=== PATIENT | female | born 1970 | race Caucasian/White ===

== ENCOUNTER 2018-11-08 11:01 | Observation (INO) ==
--- NOTE | 2018-11-08 11:20 | ERNOTE ---
Medical Problem HPI - Narrative Date of Service: 11/08/18 - General Chief Complaint: Nausea/Vomiting Time Seen by Provider: 11/08/18 11:15 Source: patient Exam Limitations: no limitations - Immun/Allergies/Home Medications Immunizations: IMMUNIZATION HX Immunizations Up to Date Yes History of Influenza Vaccine No Hx Pneumococcal Vaccination No Allergies/Adverse Reactions: Allergies No Known Allergies Allergy (Verified 11/08/18 11:07) Home Medications: HOME MEDICATIONS NK 11/05/18 [Last Taken Unknown] - Pain Score Pain Score #1 Pain Score: 10 - History of Present History Narrative: The patient is a 48 year old female who presents for persistent nausea, dizziness and fatigue which has been present for 5 days. There are associated symptoms of right parietal, temporal and frontal headache. The patient reports pain to right side of head, 10/10. There are alleviating factors of rest. There are aggravating factors of movement and oral intake. Previous treatments have included: none. The past medical history includes: asthma. The social history is negative. The patient has had unknown ill contacts, is exposed to lots of people at work. Patient was recently seen on Saturday after vomiting began, patient had resolution of vomiting upon discharge but states dizziness and headache has persisted. Patient states she has an IUD but this month began having some vaginal spotting within the past few days. Review of Systems - Review of Systems Constitutional: Present: chills, fatigue. Absent: fever EYE: Present: no symptoms reported ENT: Present: ear pain. Absent: nose congestion, nasal drainage, sore throat Respiratory: Absent: shortness of breath, cough Cardiology: Absent: chest pain Gastrointestinal/Abdominal: Present: nausea, vomiting, constipation, abdominal pain, eating less, drinking less Genitourinary: Present: no symptoms reported. Absent: dysuria Musculoskeletal: Present: no symptoms reported. Absent: back pain Skin: Present: no symptoms reported. Absent: rash Neurological: Present: headache Endocrine: Present: no symptoms reported Hematologic/Lymphatic: Present: no symptoms reported Psych: Present: no symptoms reported All Other Systems: All systems neg except as marked Medical History (Last Reviewed 11/08/18 @ 11:24 by ANA Saba) Asthma Surgical History: Surgical History (Last Reviewed 11/08/18 @ 11:24 by ANA Saba) No pertinent past surgical history Family History: Family History (Last Reviewed 11/08/18 @ 11:24 by ANA Saba) Other No pertinent family history Social History: Preferred Language Telugu Smoking Status Never smoker Alcohol Use none Drug Use none No Social History Section defined Physical Exam - Physical Exam General Appearance: Present: wd/wn, alert, moderate distress Head Exam: Present: normal inspection, no evidence of injury Eye Exam: Normal inspection: bilateral, PERRL: bilateral, EOMI: bilateral Ears, Nose, Throat: Present: normal ENT inspection, pharyngeal erythema Neck: Present: normal inspection, nontender Respiratory: Present: no respiratory distress, normal breath sounds, no ac cessory muscle use, lungs clear Cardiovascular/Chest: Present: regular rate, rhythm, no murmur Gastrointestinal/Abdominal: Present: normal bowel sounds, nondistended, soft, no organomegaly, tenderness - diffuse. 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 Discussed case with due to persistent symptoms. 11/08/18 13:27 Patient will be admitted due to persistent nausea, dizziness and headache. - Results and Orders Patient's Lab Results:: I have reviewed the patient's lab results. - Vital Signs Patient's Vital Signs:: I have reviewed the patient's vital signs. Vital Signs: Vital Signs 11/08/18 11:01 Temperature 36.7 C Pulse Rate 67 Respiratory Rate 16 Blood Pressure 135/93 H O2 Sat by Pulse Oximetry 99 - CT/Ultrasound CT/Ultrasound Narrative: X-RAY REPORT ~[id number] CT/CT Head W/O *~ Exam Date: 11/08/2018 12:06 Ordering Physician: Laila PEREZ HISTORY: persistent headache for five days UNENHANCED CT SCAN OF THE BRAIN Comparison: None Technique: Multiple axial images were obtained through the brain without the use of IV contrast. Individualized dose optimization technique was used for the performed procedure including automated exposure control, adjustment of the mA and/or kV according to patient size and/or the iterative reconstruction technique. Findings: The lateral ventricles and sulci are symmetric and within normal limits for the patient's age. I do not see evidence for acute blood, extra- axial collection, or mass effect. I do not see evidence for chronic infarction within the supratentorial brain. The 3rd and 4th ventricles are midline and are of normal size. There is some streak artifact in the posterior fossa, but the cerebellum and visualized abbi appear normal. There is minimal mucosal disease in the ethmoid and left maxillary sinus without air-fluid levels. The remaining sinuses are clear. The mastoid air cells and middle ears appear to be normally aerated. Bone windows demonstrate no evidence for fracture. I do not see evidence for significant soft tissue swelling overlying the calvarium. IMPRESSION: 1. NO ACUTE INTRACRANIAL PROCESS. IF THERE IS CONTINUED CLINICAL CONCERN, NEUROLOGY FOLLOW-UP AND/OR MRI OF THE BRAIN IS RECOMMENDED. Electronically signed by Jin Duarte M.D.. - Progress/Reassessment Chief Complaint: Nausea/Vomiting Departure Clinical Impression: Dizziness, Nausea Headache Qualifiers: Headache type: unspecified Headache chronicity pattern: acute headache Intractability: intractable Qualified Code(s): R51 - Headache - Departure Disposition: Still a patient Condition: Fair
[2018-11-08] MEDS ORDERED: diphenhydrAMINE HCL 50 MG/ML VIAL IV ONE (11:22)
[2018-11-08] MEDS ORDERED: KETOROLAC TROMETHAMINE 30 MG/ML VIAL IV ONE (11:22)
[2018-11-08] MEDS ORDERED: METOCLOPRAMIDE HCL 5 MG/ML VIAL IV ONE (11:22)
[2018-11-08] MEDS ORDERED: MECLIZINE HCL 25 MG TABLET PO ONE (11:22)
[2018-11-08] MEDS ORDERED: NORMAL SALINE 1,000 ML IV ONE ×2 (11:23→14:59)
[2018-11-08 11:38] LABS: Hematocrit 43.3 % (37.0-47.0); Hemoglobin 14.7 gm/dL (12.5-16.0); Mean Cell Volume 89.1 fl (78-100); Mean Corpuscular Hemoglobin 30.2 pg (27-31); Mean Corpuscular Hgb Conc 33.9 g/dl (32-36); Mean Platelet Volume 9.7 fl (8-12.5); Neutrophil # 9.8 K/mm3 (1.3-6.0); Neutrophil % 84.1 % (42-75.0); Platelet Count 398 K/mm3 (150-450); Red Blood Count 4.86 M/mm3 (4.2-5.4); Red Cell Distribution Width 12.7 % (11.5-14.0); White Blood Count 11.7 K/mm3 (4.0-10.5)
[2018-11-08 11:51] LABS: Anion Gap 17.7 mmol/L (6.8-13.8); BUN/Creatinine Ratio 16.1 (9.0-21.6); Bilirubin, Total 0.7 mg/dL (0.0-1.1); Ca. Corrected For Albumin 8.7 mg/dL (8.4-10.2); Carbon Dioxide 23.6 mmol/L (24-32.6); Potassium 3.3 mmol/L (3.4-4.6); Total Protein 8.9 gm/dL (6.2-8.2)
[2018-11-08 13:29] LABS: Urine Color Yellow
[2018-11-08 13:30] LABS: Urine Appearance Slightly Cloudy (CLEAR); Urine Bilirubin Negative (NEGATIVE)
[2018-11-08 13:32] LABS: Urine Blood 250 /ul (NEGATIVE); Urine Ketone Large mg/dL (NEGATIVE); Urine Nitrite Negative (NEGATIVE); Urine Protein 15 mg/dL (NEGATIVE); Urine Urobilinogen Normal (NORMAL)
[2018-11-08 13:41] LABS: Urine Bacteria 1+; Urine RBC 0-5 /hpf (0-5); Urine WBC 0-5 /hpf (0-5)
[2018-11-08] MEDS ORDERED: SUMAtriptan SUCCINATE 50 MG TABLET PO ONE (14:45)
[2018-11-08] MEDS ORDERED: ONDANSETRON 4 MG TAB.RAPDIS PO PRN (15:02)
--- NOTE | 2018-11-08 15:06 | HP ---
Chief Complaint - Chief Complaint Date of Service: 11/08/18 Time of Service: 14:37 Chief Complaint: dizziness, headache History of Present Illness: Patient came to the ER today for the second ER visit and 4 days for dizziness and headache. She does not regularly visit a doctor, but her only known diagnosis is asthma. She developed some dizziness on Saturday, which was 4 days ago. Also developed some vomiting after that dizziness. Since then she has vomited particularly with movement. She did not get any better, and went to the ED on Saturday, 3 days ago. She was given Zofran, Benadryl, and tramadol, which was mildly helpful with her headache and helped her nausea. She went home and spent the next 2 days in bed because she was too dizzy to move. She came back to the ED today because she had not gotten any better. She has some right ear pain and ringing in her right ear. Her headache is posterior and bilateral, and she rates it 10/10. Negative CT head today. Denies cough, fevers, confusion, syncope. She is alternating between feeling hot and cold. No medication changes lately, and denies alcohol and tobacco and any drug use. Medical History (Last Reviewed 11/08/18 @ 11:24 by ANA Saba) Asthma Surgical History: Surgical History (Last Reviewed 11/08/18 @ 11:24 by ANA Saba) No pertinent past surgical history Family History: Family History (Last Reviewed 11/08/18 @ 11:24 by ANA Saba) Other No pertinent family history Social History: Preferred Language Sudanese Smoking Status Never smoker Alcohol Use none Drug Use none No Social History Section defined Review Of Systems (GEN) - Review of Systems Generalized/Overall Review: Present: Chills. Absent: Fever EENTM: Present: Ear Pain - Right Cardiac: Absent: Chest Pain, Edema, Syncope Abdominal: Present: Vomiting. Absent: Diarrhea Genitourinary: Absent: Burning Neurological: Present: Headache Immunizations: IMMUNIZATION HX Immunizations Up to Date Yes History of Influenza Vaccine No Hx Pneumococcal Vaccination No Allergies/Adverse Reactions: Allergies Allergy/AdvReac Type Severity Reaction Status Date / Time No Known Allergies Allergy Verified 11/08/18 11:07 Home Medications: HOME MEDICATIONS NK 11/05/18 [Last Taken Unknown] Exam - Exam Vital Signs: Vital Signs - Last Taken Temp 36.7 C 11/08/18 11:01 Pulse 68 11/08/18 14:15 Resp 16 11/08/18 14:15 BP 134/71 11/08/18 14:15 Pulse Ox 99 11/08/18 14:15 Constitutional: Present: Alert, Oriented x3, Mild distress ENT Exam: Present: dry mucous membranes Eye Exam: bilateral eye: EOMI Respiratory: Present: lungs clear, normal breath sounds Cardiovascular/Chest: Present: regular rate, rhythm Abdomen: Present: soft, nontender Extremity: Absent: lower extremity edema Neurologic: Present: normal mood/affect, other - Positive modified [place]-Hallpike, done in the hospital bed. Absent: motor weakness Eye contact: Present: cooperative Diagnostic Studies: Abnormal Lab Results 11/08/18 11/08/18 11/08/18 Range/Units 11:36 11:36 13:23 WBC 11.7 H (4.0-10.5) K/mm3 Immature Gran # (Auto) 0.04 H (0.000-0.0310) K/mm3 Neutrophils % 84.1 H (42-75.0) % Lymphocytes % 10.9 L (20-51) % Neutrophils # 9.8 H (1.3-6.0) K/mm3 Lymphocytes # 1.27 L (1.5-3.5) k/mm3 Potassium 3.3 L (3.4-4.6) mmol/L Carbon Dioxide 23.6 L (24-32.6) mmol/L Anion Gap 17.7 H (6.8-13.8) mmol/L Total Protein 8.9 H (6.2-8.2) gm/dL Urine Protein 15 H (NEGATIVE) mg/dL Urine Blood 250 H (NEGATIVE) /ul Ur Epithelial Cells 10-25 H (0-5) /hpf Urine Bacteria 1+ H (NONE) Laboratory Results WBC 11.7 K/mm3 (4.0-10.5) H 11/08/18 11:36 RBC 4.86 M/mm3 (4.2-5.4) 11/08/18 11:36 Hgb 14.7 gm/dL (12.5-16.0) 11/08/18 11:36 Hct 43.3 % (37.0-47.0) 11/08/18 11:36 MCV 89.1 fl (78-100) 11/08/18 11:36 MCH 30.2 pg (27-31) 11/08/18 11:36 MCHC 33.9 g/dl (32-36) 11/08/18 11:36 RDW 12.7 % (11.5-14.0) 11/08/18 11:36 Plt Count 398 K/mm3 (150-450) 11/08/18 11:36 MPV 9.7 fl (8-12.5) 11/08/18 11:36 Immature Gran % (Auto) 0.30 % (0.001-0.429) 11/08/18 11:36 Immature Gran # (Auto) 0.04 K/mm3 (0.000-0.0310) H 11/08/18 11:36 Neutrophils % 84.1 % (42-75.0) H 11/08/18 11:36 Lymphocytes % 10.9 % (20-51) L 11/08/18 11:36 Monocytes % 3.8 % (0.0-9) 11/08/18 11:36 Eosinophils % 0.4 % (0.0-3.0) 11/08/18 11:36 Basophils % 0.5 % (0.0-1.0) 11/08/18 11:36 Nucleated RBC % 0.0 k/mm3 (0-1) 11/08/18 11:36 Neutrophils # 9.8 K/mm3 (1.3-6.0) H 11/08/18 11:36 Lymphocytes # 1.27 k/mm3 (1.5-3.5) L 11/08/18 11:36 Monocytes # 0.4 k/mm3 (0.0-1.0) 11/08/18 11:36 Eosinophils # 0.1 k/mm3 (0.0-0.7) 11/08/18 11:36 Absolute Basophils 0.1 k/mm3 (0.0-0.1) 11/08/18 11:36 Sodium 140 mmol/L (132-142) 11/08/18 11:36 Plasma Sodium 140 mmol/L (130-142) 11/08/18 11:36 Potassium 3.3 mmol/L (3.4-4.6) L 11/08/18 11:36 Chloride 102 mmol/L (97-106) 11/08/18 11:36 Carbon Dioxide 23.6 mmol/L (24-32.6) L 11/08/18 11:36 Anion Gap 17.7 mmol/L (6.8-13.8) H 11/08/18 11:36 BUN 14 mg/dL (3-23) 11/08/18 11:36 Creatinine 0.87 mg/dL (0.4-1.4) 11/08/18 11:36 Est GFR (Non-Af Amer) 74 mL/min (60-130) 11/08/18 11:36 BUN/Creatinine Ratio 16.1 (9.0-21.6) 11/08/18 11:36 Random Glucose 97 mg/dL (70-110) D 11/08/18 11:36 Calcium 9.0 mg/dL (7.9-10.9) 11/08/18 11:36 Calcium Adj for Albumin 8.7 mg/dL (8.4-10.2) 11/08/18 11:36 Total Bilirubin 0.7 mg/dL (0.0-1.1) 11/08/18 11:36 AST 20 U/L (0-48) 11/08/18 11:36 ALT 20 U/L (19-67) 11/08/18 11:36 Alkaline Phosphatase 74 U/L (50-170) 11/08/18 11:36 Total Protein 8.9 gm/dL (6.2-8.2) H 11/08/18 11:36 Albumin 4.0 gm/dl (3.4-5.0) 11/08/18 11:36 Amylase 46 U/L (25-115) 11/08/18 11:36 Lipase 192 U/L (73-393) 11/08/18 11:36 Urine Color Yellow 11/08/18 13:23 Urine Appearance Slightly cloudy (CLEAR) 11/08/18 13:23 Urine pH 6.0 pH (5.0-7.0) 11/08/18 13:23 Ur Specific [place] 1.030 SP.GR. (1.005-1.010) 11/08/18 13:23 Urine Protein 15 mg/dL (NEGATIVE) H 11/08/18 13:23 Urine Glucose (UA) Negative mg/dL (NEGATIVE) 11/08/18 13:23 Urine Ketones Large mg/dL (NEGATIVE) 11/08/18 13:23 Urine Blood 250 /ul (NEGATIVE) H 11/08/18 13:23 Urine Nitrate Negative (NEGATIVE) 11/08/18 13:23 Urine Bilirubin Negative mg/dl (NEGATIVE) 11/08/18 13:23 Prot Sulfosalicylic Acd 1+ mg/dL (0) 11/08/18 13:23 Urine Urobilinogen Normal EU/dl (NORMAL) 11/08/18 13:23 Ur Leukocyte Esterase Negative /ul (NEGATIVE) 11/08/18 13:23 Urine RBC 0-5 /hpf (0-5) 11/08/18 13:23 Urine WBC 0-5 /hpf (0-5) 11/08/18 13:23 Ur Epithelial Cells 10-25 /hpf (0-5) H 11/08/18 13:23 Urine Bacteria 1+ (NONE) H 11/08/18 13:23 Urine Culture Comments No culture indicated 11/08/18 13:23 Urine HCG, Qual Negative (NEGATIVE) 11/08/18 13:37 Group A Strep Rapid Negative (NEGATIVE) 11/08/18 11:36 Assessment/Plan - Assessment/Plan (1) Vertigo Assessment: She had increased dizziness with a modified Vallecito-Hallpike maneuver done while in bed. She reports having right-sided ear pain and ringing. She was given meclizine in the ER. PT has been consulted. If time allows, will administer Carmen maneuver. No significant findings on lab work or vitals today. No signs of infection. Problem: Acute (2) Headache Assessment: She has a high specific gravity 1.03 on her urine and elevated anion gap, indicating some mild dehydration. She was given 1 L in the ED, and will give her a liter bolus now. Her headache did not improve after administration of Toradol, Benadryl, Reglan in the ER. Will administer one-time dose of Imitrex. Problem: Acute Qualifiers: Headache type: unspecified Headache chronicity pattern: acute headache Intractability: intractable Qualified Code(s): R51 - Headache (3) Dizziness Assessment: Secondary to vertigo. She was given a dose of meclizine and thus far has not had improvement. Problem: Acute (4) Vomiting Assessment: Patient reports she only has vomiting when she moves her head. Likely secondary to BPPV. Will continue Zofran as needed. Problem: Acute Qualifiers: Vomiting Intractability: non-intractable Nausea presence: with nausea (5) Hypokalemia Assessment: Potassium of 3.3. Will administer 40 mEq K-Dur or Klor-Con, whatever is available. Recheck in a.m. Problem: Acute
[2018-11-08] MEDS ORDERED: POTASSIUM CHLORIDE 20 MEQ TABLET.SA PO ONE (15:15)
[2018-11-08] MEDS: ACETAMINOPHEN 500 MG TABLET PO PRN (18:56)
[2018-11-08] MEDS: IBUPROFEN 400 MG TABLET PO PRN (18:57)
[2018-11-09] MEDS: ACETAMINOPHEN 500 MG TABLET PO PRN (03:02)
[2018-11-09] MEDS: IBUPROFEN 400 MG TABLET PO PRN (03:02)
[2018-11-09 06:33] LABS: Anion Gap 15.4 mmol/L (6.8-13.8); BUN/Creatinine Ratio 17.1 (9.0-21.6); Calcium * 8.2 mg/dL (7.9-10.9); Carbon Dioxide 23.4 mmol/L (24-32.6); Estimated Creat Clear 81.5; Potassium 3.8 mmol/L (3.4-4.6)
[2018-11-09] MEDS ORDERED: KETOROLAC TROMETHAMINE 30 MG/ML VIAL IV ONE (09:00)
[2018-11-09] MEDS ORDERED: PROPRANOLOL HCL 20 MG TABLET PO SCH (09:00)
--- NOTE | 2018-11-09 10:06 | DS ---
(1) Vertigo Problem: Acute (2) Headache Problem: Acute Qualifiers: Headache type: unspecified Headache chronicity pattern: acute headache Intractability: intractable Qualified Code(s): R51 - Headache (3) Dizziness Problem: Acute (4) Vomiting Problem: Resolved Qualifiers: Vomiting Intractability: non-intractable Nausea presence: with nausea (5) Hypokalemia Problem: Resolved Description of Stay: Patient presented for her second ER visit in 4 days for dizziness and headache. She does not regularly visit a doctor, but her only known diagnosis is asthma. She developed some dizziness on Saturday, which was 4 days prior to admission. Also developed some vomiting after that dizziness. Since then she has vomited particularly with movement. She did not get any better, and went to the ED on Saturday, 3 days prior to admission. She was given Zofran, Benadryl, and tramadol, which was mildly helpful with her headache and helped her nausea. She went home and spent the next 2 days in bed because she was too dizzy to move. She came back to the ED 11/08 because she had not gotten any better. She has some right ear pain and ringing in her right ear. Her headache is posterior and bilateral, and she rates it 10/10. Negative CT head today. Denies cough, fevers, confusion, syncope. She is alternating between feeling hot and cold. No medication changes lately, and denies alcohol and tobacco and any drug use. Modified [place]-Hallpike was positive, indicating likely BPPV. PT consulted. No improvement after imitrex. Propranolol was started, and additional dose of IV tramadol was given on the day of discharge. Will excuse her from work this week, to allow her to work with PT. Will give her a copy of the Carmen maneuver to do at home. Procedures Performed: none Results and Findings: Lab Pending Results 11/08/18 11:36: WBC 11.7 H, RBC 4.86, Hgb 14.7, Hct 43.3, MCV 89.1, MCH 30.2, MCHC 33.9, RDW 12.7, Plt Count 398, MPV 9.7, Immature Gran % (Auto) 0.30, Immature Gran # (Auto) 0.04 H, Neutrophils % 84.1 H, Lymphocytes % 10.9 L, Monocytes % 3.8, Eosinophils % 0.4, Basophils % 0.5, Nucleated RBC % 0.0, Neutrophils # 9.8 H, Lymphocytes # 1.27 L, Monocytes # 0.4, Eosinophils # 0.1, Absolute Basophils 0.1 11/08/18 11:36: Sodium 140, Plasma Sodium 140, Potassium 3.3 L, Chloride 102, Carbon Dioxide 23.6 L, Anion Gap 17.7 H, BUN 14, Creatinine 0.87, Est GFR (Non- Af Amer) 74, BUN/Creatinine Ratio 16.1, Random Glucose 97 D, Calcium 9.0, Calcium Adj for Albumin 8.7, Total Bilirubin 0.7, AST 20, ALT 20, Alkaline Phosphatase 74, Total Protein 8.9 H, Albumin 4.0, Amylase 46, Lipase 192 11/08/18 11:36: Group A Strep Rapid Negative 11/08/18 12:49: Urine HCG, Qual Cancelled 11/08/18 13:23: Urine Color Yellow, Urine Appearance Slightly cloudy, Urine pH 6.0, Ur Specific [place] 1.030, Urine Protein 15 H, Urine Glucose (UA) Negative, Urine Ketones Large, Urine Blood 250 H, Urine Nitrate Negative, Urine Bilirubin Negative, Prot Sulfosalicylic Acd 1+, Urine Urobilinogen Normal, Ur Leukocyte Esterase Negative, Urine RBC 0-5, Urine WBC 0-5, Ur Epithelial Cells 10-25 H, Urine Bacteria 1+ H, Urine Culture Comments No culture indicated 11/08/18 13:37: Urine HCG, Qual Negative 11/09/18 06:10: Sodium 141, Plasma Sodium 141, Potassium 3.8, Chloride 106, Carbon Dioxide 23.4 L, Anion Gap 15.4 H, BUN 13, Creatinine 0.76, Est GFR (Non- Af Amer) 86, BUN/Creatinine Ratio 17.1, Random Glucose 91, Calcium 8.2 Discharge Location: Home Disposition: Home self-care Condition: Fair Discharge Activity: Activity as tolerated Discharge Diet: General/regular food Prescriptions (Any new or edited meds): Ondansetron [Zofran Odt] 4 mg PO Q6H PRN #10 tab.rapdis PRN Reason: Nausea And Vomiting Propranolol HCl [Inderal] 40 mg PO Q8H #90 tablet Complete Home Medications List: Complete Home Medication List: Ondansetron [Zofran Odt] 4 mg PO Q6H PRN #10 tab.rapdis 11/09/18 Propranolol HCl [Inderal] 40 mg PO Q8H #90 tablet 11/09/18 Amb Orders for Discharge: PT Evaluation and Treatment* Location: None Selected
[2018-11-09 10:56] VITALS: BP 113/70
== END 2018-11-09 12:10 | disposition home or self-care (01) ==
LOC: MS 11:01 → ER 11:01 → MS 14:15
PROVIDERS: ADMIT Family Medicine; ATTEND Family Medicine
DX: E87.6 Hypokalemia; R42 Dizziness and giddiness; R51 Headache; R11.10 Vomiting, unspecified
CPT/HCPCS: 36415; 70450; 80048; 80053; 81001; 82150; 83690; 84703; 85025; 87081; 87430; 96365; 96366; 96375; 99285; G0378